=== PATIENT | female | born 1990 | race African-American/Black ===

== ENCOUNTER 2018-01-02 21:05 | Emergency (ER) | payer OTHER ==
[~2018-01-02] VITALS: Ht 170.2 cm; Wt 60.0 kg
[~2018-01-02 21:05] MED LIST: MEDR150P IM; NORE1CHW4 PO
[2018-01-02 21:07] VITALS: BP 148/80; PULSE 81; RESP 15; TEMP 98.7; O2SAT 100
--- NOTE | 2018-01-02 22:10 | PD ---
HPI Chief Complaint: Manager Latin Problem/Complaint Time Seen by Provider: 21:52 Travel History International Travel<30 days: No Contact w/Intl Traveler<30days: No Traveled to known affect area: No History of Present Illness HPI The patient was seen and examined in the presence of the nurse. This patient complains of pelvic cramping and vaginal bleeding. Duration is one month. She' s not had any follow-up. She is not sure if she is . Severity is moderate. No alleviating factors. No exacerbating factors. PFSH Past Medical History Anxiety: Yes Depression: Yes Diabetes: No Diminished Hearing: No Sickle Cell Disease: Yes (SICKLE CELL TRAIT) ?: Not Menopausal: No : 4 Para: 0 Miscarriage: 4 Past Surgical History Abdominal Surgery: Yes (C SECTION) Section: Yes Tympanostomy Tube: Yes Other Surgery: Yes (RIGHT EAR) Social History Alcohol Use: Yes Tobacco Use: No Substance Use: Yes (CRACK COCAINE ABUSE) Allergies-Medications (Allergen,Severity, Reaction): Coded Allergies: nickel (Verified Allergy, Unknown, 01/02/18) onion (Unverified Adverse Reaction, Severe, Anaphylaxis, 01/02/18) Reported Meds & Prescriptions Reported Meds & Active Scripts Active No Active Prescriptions or Reported Medications Review of Systems General / Constitutional: No: Fever Eyes: No: Visual changes HENT: No: Headaches Cardiovascular: No: Chest Pain or Discomfort Respiratory: No: Shortness of Breath Gastrointestinal: No: Abdominal Pain Genitourinary: Positive: Pelvic Pain, Vaginal Bleeding, No: Dysuria Musculoskeletal: No: Pain Skin: No Rash Neurologic: No: Weakness Psychiatric: No: Depression Endocrine: No: Polydipsia Hematologic/Lymphatic: No: Easy Bruising Physical Exam Narrative GENERAL: Well-nourished, well-developed patient in no apparent distress. SKIN: Focused skin assessment reveals no rash and nodules. Skin is Warm and dry. HEAD: Atraumatic. Normocephalic. EYES: Pupils equal and round. No scleral icterus. No injection or drainage. ENT: No nasal bleeding or discharge. Mucous membranes pink and moist. NECK: Trachea midline. No JVD. CARDIOVASCULAR: Regular rate and rhythm. No murmur appreciated. RESPIRATORY: No accessory muscle use. Clear to auscultation. Breath sounds equal bilaterally. GASTROINTESTINAL: Abdomen soft, mild bilateral lower quadrant tenderness without rebound or guarding, nondistended. Hepatic and splenic margins not palpable. MUSCULOSKELETAL: No obvious deformities. No clubbing. No cyanosis. No edema. NEUROLOGICAL: Awake and alert. No obvious cranial nerve deficits. Motor grossly within normal limits. Normal speech. PSYCHIATRIC: Appropriate mood and affect; insight and judgment normal. Data Data Last Documented VS Vital Signs Date Time Temp Pulse Resp B/P (MAP) Pulse Ox O2 Delivery O2 Flow Rate FiO2 01/02/18 21:07 98.7 81 15 148/80 (102) 100 Room Air Orders Orders Iv Access Insert/Monitor (01/02/18 22:05) Complete Blood Count With Diff (01/02/18 22:05) Beta Hcg (Quant/Titer) (01/02/18 22:05) Labs Laboratory Tests Test 01/02/18 22:10 White Blood Count 6.6 TH/MM3 Red Blood Count 3.86 MIL/MM3 Hemoglobin 10.7 GM/DL Hematocrit 32.1 % Mean Corpuscular Volume 83.1 FL Mean Corpuscular Hemoglobin 27.6 PG Mean Corpuscular Hemoglobin Concent 33.3 % Red Cell Distribution Width 16.8 % Platelet Count 380 TH/MM3 Mean Platelet Volume 9.3 FL Neutrophils (%) (Auto) 33.1 % Lymphocytes (%) (Auto) 52.8 % Monocytes (%) (Auto) 12.0 % Eosinophils (%) (Auto) 1.0 % Basophils (%) (Auto) 1.1 % Neutrophils # (Auto) 2.2 TH/MM3 Lymphocytes # (Auto) 3.5 TH/MM3 Monocytes # (Auto) 0.8 TH/MM3 Eosinophils # (Auto) 0.1 TH/MM3 Basophils # (Auto) 0.1 TH/MM3 CBC Comment AUTO DIFF Differential Comment AUTO DIFF CONFIRMED Platelet Estimate NORMAL Platelet Morphology Comment ENLARGED Acanthocytes OCC Red Cell Morphology Comment Human Chorionic Gonadotropin, Quant LESS THAN 1 MIU/ML MDM Medical Decision Making Medical Screen Exam Complete: Yes Emergency Medical Condition: Yes Medical Record Reviewed: Yes Differential Diagnosis Threatened , ectopic , dysfunctional uterine bleeding Narrative Course I have reviewed the patient's electronic medical record. Reviewed her prior lab studies. She is A positive blood type CBC shows mild anemia with hemoglobin of 10.7 Beta hCG is negative Patient has normal vital signs and a soft benign abdomen I was suggesting to do a pelvic ultrasound to rule out things like fibroids with the patient declines. She says she has to leave. She's got a small child at the bedside. Going to write her a week of Provera given her anemia and non status Needs to get [facility] [employer] follow-up and she understands that he will make some calls tomorrow to try to get that arranged Diagnosis Primary Impression: Vaginal bleeding Additional Impression: Anemia Qualified Codes: D64.9 - Anemia, unspecified Additional Instructions: Follow-up with [facility] Med/Other Pt SpecificInfo: Prescription(s) given Scripts No Active Prescriptions or Reported Meds Disposition: 01 DISCHARGE HOME Condition: Stable Neil Comer MD Jan 02, 2018 22:10
[2018-01-02 22:45] LABS: AUTOMATED NEUTROPHIL # 2.2 TH/MM3 (1.8-7.7); BASOPHIL # 0.1 TH/MM3 (0-0.2); BASOPHIL % 1.1 % (0.0-2.0); EOSINOPHIL # 0.1 TH/MM3 (0-0.4); HEMATOCRIT 32.1 % (35.0-46.0); HEMOGLOBIN 10.7 GM/DL (11.6-15.3); LYMPH % 52.8 % (9.0-44.0); LYMPHOCYTE # 3.5 TH/MM3 (1.0-4.8); MEAN CELL VOLUME 83.1 FL (80.0-100.0); MEAN CORPUSCULAR HEMOGLOBIN 27.6 PG (27.0-34.0); MEAN CORPUSCULAR HGB CONC 33.3 % (32.0-36.0); MEAN PLATELET VOLUME 9.3 FL (7.0-11.0); MONOCYTE # 0.8 TH/MM3 (0-0.9); NEUT % 33.1 % (16.0-70.0); PLATELET COUNT 380 TH/MM3 (150-450); RED BLOOD COUNT 3.86 MIL/MM3 (4.00-5.30); RED CELL DISTRIBUTION WIDTH 16.8 % (11.6-17.2); WHITE BLOOD COUNT 6.6 TH/MM3 (4.0-11.0)
[2018-01-02 23:30] LABS: ACANTHOCYTES OCC (NORMAL)
[2018-01-03] MEDS ORDERED: PROV10TA PO (00:09)
== END 2018-01-03 00:32 | disposition home or self-care (01) ==
LOC: NEPD 21:05
DX: N93.9 Abnormal uterine and vaginal bleeding, unspecified (principal); D64.9 Anemia, unspecified; D57.3 Sickle-cell trait; F32.9 Major depressive disorder, single episode, unspecified; F41.9 Anxiety disorder, unspecified; F14.10 Cocaine abuse, uncomplicated
CPT/HCPCS: 84702; 85025; 99283